=== PATIENT | male | born 1955 | race Caucasian/White ===

== ENCOUNTER 2019-02-13 03:50 | Inpatient (IN) | payer OTHER ==
[~2019-02-13] VITALS: Ht 180.3 cm; Wt 98.5 kg
[2019-02-13] MEDS ORDERED: ONDANSETRON 2MG/ML, 2ML ONE (04:00)
[2019-02-13] MEDS ORDERED: MORPHINE SULFATE 4 MG/ML, 1ML ONE (04:00)
[2019-02-13] MEDS ORDERED: ONDANSETRON 2MG/ML, 2ML IVPush ONE (04:00)
[2019-02-13] MEDS ORDERED: NITROGLYCERIN 0.4 MG BOTTLE (25 TABS) SL PRN (04:00)
[2019-02-13] MEDS ORDERED: PLEASE ENTER ALLERGIES MC SCH (04:00)
[2019-02-13] MEDS ORDERED: MORPHINE SULFATE 4 MG/ML, 1ML IVPush PRN (04:00)
[2019-02-13 04:10] VITALS: BP 105/73
[2019-02-13 04:14] LABS: BASOPHILS # (AUTO) 0.06 x10^3/uL (0-0.1); BASOPHILS % (AUTO) 1 % (0-1); EOSINOPHILS # (AUTO) 0.28 x10^3/uL (0-0.4); EOSINOPHILS % (AUTO) 4 % (1-7); LYMPHOCYTES # (AUTO) 3.57 x10^3/uL (1-3.4); LYMPHOCYTES % (AUTO) 43 % (22-44); MD NO; MEAN CORPUSCULAR HEMOGLOBIN 30.3 pg (27.5-34.5); MEAN CORPUSCULAR HGB CONC 32.8 g/dL (33.2-36.2); MEAN CORPUSCULAR VOLUME 92.4 fL (81-97); MONOCYTES # (AUTO) 0.88 x10^3/uL (0.2-0.8); MONOCYTES % (AUTO) 11 % (2-9); NEUTROPHILS # (AUTO) 3.45 x10^3/uL (1.8-6.8); NEUTROPHILS % (AUTO) 42 % (42-75); PLATELET COUNT 197 x10^3/uL (130-400); RED CELL DISTRIBUTION WIDTH 14.1 % (9.4-14.8)
[2019-02-13 04:25] LABS: INTERNATIONAL NORMALIZED RATIO 0.99 (0.93-1.1); PROTHROMBIN TIME 10.4 Seconds (9.6-11.5)
[2019-02-13] MEDS ORDERED: FENTANYL PF 100 MCG/2ML ONE (04:28)
[2019-02-13] MEDS ORDERED: MIDAZOLAM 1 MG/ML, 5ML ONE (04:28)
[2019-02-13] MEDS ORDERED: BIVALIRUDIN 250 MG ONE ×2 (04:28→05:15)
[2019-02-13] MEDS ORDERED: TICAGRELOR 90 MG TABLET ONE (04:28)
[2019-02-13] MEDS ORDERED: HEPARIN 1,000 UNITS/ML, 10ML ONE (04:28)
[2019-02-13] MEDS ORDERED: NITROGLYCERIN 5 MG/ML, 10ML ONE (04:28)
[2019-02-13] MEDS ORDERED: VERAPAMIL 2.5 MG/ML, 2ML ONE (04:28)
[2019-02-13] MEDS ORDERED: LIDOCAINE 2%, 20ML ONE (04:29)
[2019-02-13 04:32] LABS: TROPONIN I 0.251 ng/mL (0.000-0.045)
[2019-02-13] MEDS ORDERED: ASPIRIN 325 MG TABLET EC ONE (05:12)
[2019-02-13] MEDS ORDERED: BIVALIRUDIN 250 MG in DEXTROSE 5% 50 ML IV SCH (05:13)
[2019-02-13] MEDS ORDERED: BISACODYL 10 MG SUPP PR PRN (09:00)
[2019-02-13] MEDS ORDERED: ONDANSETRON 2MG/ML, 2ML IV PRN (09:00)
[2019-02-13] MEDS ORDERED: ACETAMINOPHEN 325 MG TABLET PO PRN (09:00)
[2019-02-13] MEDS ORDERED: ZOLPIDEM 5MG TABLET PO PRN (09:00)
[2019-02-13] MEDS ORDERED: SODIUM CHLORIDE 0.9% 1,000 ML IV SCH (09:00)
[2019-02-13] MEDS ORDERED: BISACODYL 5 MG EC TABLET PO PRN (09:00)
[2019-02-13 09:12] LABS: ANION GAP 6 mmol/L (5-15); CALCIUM 8.2 mg/dL (8.5-10.1); CHLORIDE 112 mmol/L (98-107)
[2019-02-13 09:15] LABS: CREATININE 1.03 mg/dL (0.7-1.3)
[2019-02-13] MEDS: TICAGRELOR 90 MG TABLET PO SCH ×2 (09:24→21:04)
[2019-02-13] MEDS: ASPIRIN 81 MG TABLET EC PO SCH (09:24)
[2019-02-13] MEDS ORDERED: ATORVASTATIN 40 MG TABLET PO SCH (21:00)
[2019-02-14 04:56] LABS: ANION GAP 8 mmol/L (5-15); CALCIUM 8.4 mg/dL (8.5-10.1); CHLORIDE 109 mmol/L (98-107); CREATININE 0.94 mg/dL (0.7-1.3)
[2019-02-14 05:00] LABS: CHOL/HDL RATIO 4.7; CHOLESTEROL, TOTAL 182 mg/dL (140-239); HDL CHOL % 21 % (26-37); HDL CHOLESTEROL (DIRECT) 39 mg/dL (40-60); LDL CHOLESTEROL,CALCULATED 120 mg/dL (54-169); LDL/HDL RATIO 3.1 (0.5-3.0); TRIGLYCERIDES 115 mg/dL (50-200); VLDL CHOLESTEROL 23 mg/dL (0-25)
[2019-02-14] MEDS ORDERED: ASPIRIN 81 MG TABLET EC PO SCH (06:00)
[2019-02-14] MEDS: TICAGRELOR 90 MG TABLET PO SCH (08:09)
[2019-02-14] MEDS: ASPIRIN 81 MG TABLET EC PO SCH (08:10)
[2019-02-14] MEDS ORDERED: ATOR40TA78 PO (12:12)
[2019-02-14] MEDS ORDERED: ASPI81TA45 PO (12:12)
[2019-02-14] MEDS ORDERED: METO25TA2 PO (12:12)
[2019-02-14] MEDS ORDERED: TICA90TA PO (12:12)
[2019-02-14] MEDS ORDERED: ACET325T14 PO (12:12)
== END 2019-02-14 15:20 | disposition home or self-care (01) | DRG 247 ==
LOC: ED 05:45 → ICU 05:47 → DCLOUNGE 02-14 14:52
PROVIDERS: ADMIT Student in an Organized Health Care Education/Training Program; ATTEND Student in an Organized Health Care Education/Training Program
PROC: 027034Z Dilation of Coronary Artery, One Artery with Drug-eluting Intraluminal Device, Percutaneous Approach (ICD-10-PCS; principal; 2019-02-13)
PROC: 4A023N7 Measurement of Cardiac Sampling and Pressure, Left Heart, Percutaneous Approach (ICD-10-PCS; 2019-02-13)
PROC: B2111ZZ Fluoroscopy of Multiple Coronary Arteries using Low Osmolar Contrast (ICD-10-PCS; 2019-02-13)
DX: I21.19 ST elevation (STEMI) myocardial infarction involving other coronary artery of inferior wall (principal); I47.2 Ventricular tachycardia; E78.5 Hyperlipidemia, unspecified; I10 Essential (primary) hypertension; I25.10 Atherosclerotic heart disease of native coronary artery without angina pectoris; N40.0 Benign prostatic hyperplasia without lower urinary tract symptoms; I95.9 Hypotension, unspecified; I21.29 ST elevation (STEMI) myocardial infarction involving other sites; E66.9 Obesity, unspecified; Z87.891 Personal history of nicotine dependence; Z68.30 Body mass index [BMI] 30.0-30.9, adult
CPT/HCPCS: 36415; 93458; 99291; J3490; 0399T; 71045; 80047; 80048; 80061; 84484; 85025; 85610; 85730; 87081; 93005; 93306; 96374; 96375; 99156; 99157; C1769; C1894; G0378; J0583; J1644; J2250; J2405; J3010; C1725; C1874; C1887; J2270; Q9967